=== PATIENT | male | born 1970 | race Caucasian/White ===

== ENCOUNTER 2020-05-06 12:39 | Outpatient (REF) | payer OTHER, SELFPAY ==
[2020-05-06 13:05] LABS: MANUAL DIFF FLAG NO
[2020-05-06 13:13] LABS: Basophils Absolute Auto 0.1 X10*3/uL (0.0-0.2); Basophils Percent Auto 0.6 % (0-2); Eosinophils Absolute Auto 0.3 X10*3/uL (0.0-0.4); Eosinophils Percent Auto 3.1 % (0-4); Hematocrit 44.2 % (42-52); Hemoglobin 15.2 g/dl (14.0-18.0); Imm Gran Abs Auto 0.02 X10*3/uL (0.00-0.03); Imm Gran Pct Auto 0.2 % (0.0-0.4); Lymphocytes Absolute Auto 2.3 X10*3/uL (1.2-4.9); Lymphocytes Percent Auto 23.6 % (20-40); Mean Corpuscular HGB Conc 34.4 g/dl (31.0-36.0); Mean Corpuscular Hemoglobin 30.3 pg (27.0-33.0); Mean Corpuscular Volume 88.2 fL (80-98); Mean Platelet Volume 10.9 fL (9.4-12.4); Monocytes Absolute Auto 0.5 X10*3/uL (0.1-1.2); Monocytes Percent Auto 5.2 % (2-11); Neutrophils Absolute Auto 6.6 X10*3/uL (2.0-8.3); Neutrophils Percent Auto 67.3 % (45-73); Platelet Count 185 X10*3/uL (160-400); Red Blood Count 5.01 X10*6/uL (4.60-5.80); Red Cell Distribution Width 12.3 % (11.0-16.0); White Blood Count 9.8 X10*3/uL (4.8-10.8)
[2020-05-06 13:36] LABS: Glucose Urine UA NEG (NEG); Leukocyte Esterase Urine NEG (NEG); Nitrite Urine NEG (NEG); PH 5.5 (5.0-8.0); Specific Gravity - Urine >= 1.030 (1.005-1.025); Urine Blood NEG (NEG); Urine Ketones NEG (NEG); Urine Protein NEG (NEG-TRACE)
[2020-05-06 13:40] LABS: Appearance Urine CLEAR; Color Urine YELLOW
[2020-05-06 13:46] LABS: Alanine Aminotransferase 31 U/L (0-40); Albumin Level 4.6 g/dL (3.5-5.0); Alkaline Phosphatase 63 U/L (39-117); Anion Gap 12 (12-20); Aspartate Amino Transferase 20 U/L (5-37); Bilirubin Total 1.1 mg/dL (0.0-1.0); Blood Urea Nitrogen 14 mg/dL (9-16); Calcium 8.9 mg/dL (8.4-10.2); Carbon Dioxide 26 mmol/L (22-29); Chloride 104 mmol/L (96-108); Cholesterol 229 mg/dL; Estimated Glomerular Filt Rate > 60; Glucose Fasting 109 mg/dL (60-99); HDL Cholesterol 60 mg/dL; LDL Cholesterol Calculated 153 mg/dl; Potassium 4.9 mmol/l (3.3-5.1); Sodium 137 mmol/L (135-145); Total Protein 7.4 g/dL (6.5-8.0); Triglycerides 82 mg/dL
[2020-05-06 13:50] LABS: Estimated Average Glucose 105 mg/dL; Hemoglobin A1c % 5.3 %
[2020-05-06 13:55] LABS: Creatinine Urine 119.46 mg/dL; Microalbum/Creatinine Ratio Ur 4.1 ug/mg cr
== END 2020-05-06 12:40 | disposition home or self-care (01) ==
LOC: HO.LAB 12:39
PROVIDERS: Visit Provider Internal Medicine
DX: Z00.00 Encounter for general adult medical examination without abnormal findings (principal); R73.03 Prediabetes; E78.00 Pure hypercholesterolemia, unspecified
CPT/HCPCS: 36415; 80053; 80061; 81003; 82043; 83036; 85025

== ENCOUNTER 2021-05-12 10:47 | Outpatient (REF) | payer OTHER, SELFPAY ==
[2021-05-12 10:53] LABS: MANUAL DIFF FLAG NO
[2021-05-12 11:22] LABS: Basophils Absolute Auto 0.1 X10*3/uL (0.0-0.2); Basophils Percent Auto 0.8 % (0-2); Eosinophils Absolute Auto 0.3 X10*3/uL (0.0-0.4); Eosinophils Percent Auto 3.2 % (0-4); Hematocrit 44.2 % (42-52); Hemoglobin 15.2 g/dl (14.0-18.0); Imm Gran Abs Auto 0.03 X10*3/uL (0.00-0.03); Imm Gran Pct Auto 0.3 % (0.0-0.4); Lymphocytes Absolute Auto 2.3 X10*3/uL (1.2-4.9); Mean Corpuscular HGB Conc 34.4 g/dl (31.0-36.0); Mean Corpuscular Hemoglobin 30.2 pg (27.0-33.0); Mean Corpuscular Volume 87.9 fL (80-98); Mean Platelet Volume 11.4 fL (9.4-12.4); Monocytes Absolute Auto 0.5 X10*3/uL (0.1-1.2); Neutrophils Absolute Auto 5.7 X10*3/uL (2.0-8.3); Neutrophils Percent Auto 63.7 % (45-73); Platelet Count 174 X10*3/uL (160-400); Red Blood Count 5.03 X10*6/uL (4.60-5.80); Red Cell Distribution Width 12.2 % (11.0-16.0)
[2021-05-12 11:32] LABS: Estimated Average Glucose 100 mg/dL; Hemoglobin A1c % 5.1 %
[2021-05-12 11:45] LABS: Alanine Aminotransferase 25 U/L (0-40); Albumin Level 4.3 g/dL (3.5-5.0); Alkaline Phosphatase 52 U/L (39-117); Anion Gap 14 (12-20); Aspartate Amino Transferase 20 U/L (5-37); Bilirubin Total 1.1 mg/dL (0.0-1.0); Blood Urea Nitrogen 14 mg/dL (9-16); Calcium 8.8 mg/dL (8.4-10.2); Carbon Dioxide 22 mmol/L (22-29); Chloride 108 mmol/L (96-108); Cholesterol 208 mg/dL; Estimated Glomerular Filt Rate > 60; Glucose Fasting 105 mg/dL (60-99); HDL Cholesterol 42 mg/dL; LDL Cholesterol Calculated 126 mg/dl; Sodium 140 mmol/L (135-145); Total Protein 6.9 g/dL (6.5-8.0); Triglycerides 200 mg/dL
[2021-05-12 11:54] LABS: Appearance Urine CLEAR; Color Urine YELLOW; Glucose Urine UA NEG (NEG); Leukocyte Esterase Urine NEG (NEG); Nitrite Urine NEG (NEG); Specific Gravity - Urine 1.025 (1.005-1.025); Urine Blood NEG (NEG); Urine Ketones NEG (NEG); Urine Protein NEG (NEG-TRACE)
[2021-05-12 11:57] LABS: Creatinine Urine 159.13 mg/dL
[2021-05-12 12:05] LABS: PSA,Total (Free>4and<10) 1.75 ng/mL (0.00-4.00)
== END 2021-05-12 10:48 | disposition home or self-care (01) ==
LOC: HO.LNP 10:47
PROVIDERS: Visit Provider Internal Medicine
DX: Z00.00 Encounter for general adult medical examination without abnormal findings (principal); Z12.5 Encounter for screening for malignant neoplasm of prostate; R73.03 Prediabetes; E78.00 Pure hypercholesterolemia, unspecified
CPT/HCPCS: 80053; 80061; 81003; 82043; 83036; 84153; 85025

== ENCOUNTER 2022-01-04 09:31 | Day surgery (SDC) | payer OTHER, SELFPAY ==
[2021-12-29 12:52] VITALS: BMI 38.2
--- NOTE | 2022-01-01 10:10 | HO.ANESPROP2 ---
Documented by User: Isis Bender NP 01/01/22 10:10 HPI - Anesthesia Eval Consult details Narrative: 51yo M for Colonoscopy FOR[facility] Past Medical History Medical History (Updated 12/29/21 @ 12:48 by Tory Alfaro RN) No pertinent past medical history Surgical History Surgical History (Updated 12/29/21 @ 12:51 by Tory Alfaro RN) History of appendectomy Social History Social History Patient Tobacco Use Status: Never used Tobacco Use of substances other than those prescribed or required for medical reasons: No Are you DNR?: No Advance Directives: No Advance Directives Information Provided: Yes Meds Allergies Allergy/AdvReac Type Severity Reaction Status Date / Time No Known Allergies Allergy Verified 12/29/21 12:51 Home Medications Medication Instructions Recorded Confirmed Last Taken Type No Known Home Meds 12/29/21 12/29/21 Unknown History Exam Exam Date and Time: January 01, 2022 1010 Height,Weight and Vital Signs: Height 6 ft 1 in Weight 131.542 kg Assessment and Plan Assessment Anesthesia Assessment: Chart Reviewed Documented by User: Tod Amos MD 01/04/22 16:59 HPI - Anesthesia Eval Consult details Narrative: 51yo M for Colonoscopy Obesity , BMI=38 [facility] Past Medical History Medical History (Updated 12/29/21 @ 12:48 by Tory Alfaro RN) No pertinent past medical history Family History Family history of problems with anesthesia: No Surgical History Surgical History (Updated 12/29/21 @ 12:51 by Tory Alfaro RN) History of appendectomy History of Problems with Anesthesia: No Social History Social History Patient Tobacco Use Status: Never used Tobacco Use of substances other than those prescribed or required for medical reasons: No Are you DNR?: No Advance Directives: No Advance Directives Information Provided: Yes Meds Allergies Allergy/AdvReac Type Severity Reaction Status Date / Time No Known Allergies Allergy Verified 12/29/21 12:51 Home Medications Medication Instructions Recorded Confirmed Last Taken Type No Known Home Meds 12/29/21 12/29/21 Unknown History Exam Airway Mallampati Class: IV TM Dist: >3cm Neck ROM: Full Loose/Missing/Broken Teeth: Yes (Chipped teeth ) Heart: S1,S2 Lungs: b/l breath sounds Assessment and Plan Assessment Anesthesia Assessment: Anesthesia Plan Discussed Final Anesthetic Review Family History of Problems with Anesthesia: No History of Problems with Anesthesia: No NPO: Yes ASA Class: II Final Preanesthetic Review: Meds/Allgs Chart Reviewed, Consent Obtained/Reviewed and Anes Risks/Benef Reviewed Patient Risk: Intermediate Procedure Risk: Intermediate Anesthetic Plan Anesthetic Plan: MAC: Disposition: Standard PACU
[2022-01-04 09:47] VITALS: BP 154/94; PULSE 70; RESP 16; TEMP 36.3; O2SAT 99
[2022-01-04] MEDS: Lactated Ringers 1,000 ML 100 ML IVCONT (09:56)
--- NOTE | 2022-01-04 12:17 | PM.OP ---
Brief Operative Note Date of Service: 01/04/22 Pre-op diagnosis: Screening Post-op diagnosis: other (Diverticulosis) Procedure: Colonoscopy to the cecum and TI Surgeon: James Silva Anesthesia: MAC Was an Traffic Work[employer] Representative used for this Procedure?: No Estimated blood loss (mL): 0 Pathology: none sent Condition: stable Disposition: PACU
[2022-01-04 12:19] VITALS: BP 124/87; PULSE 79; RESP 15; TEMP 36.3; O2SAT 97
[2022-01-04 12:33] VITALS: BP 139/96; PULSE 61; RESP 16; TEMP 36.3; O2SAT 98
--- NOTE | 2022-01-04 23:29 | OP_ITS ---
SURGEON: James Silva MD INDICATIONS: The patient presents for evaluation of colorectal cancer screening. Full consent has been obtained from him for this, including risks of bleeding and perforation. PREOPERATIVE DIAGNOSIS: Colorectal cancer screening. POSTOPERATIVE DIAGNOSIS: PROCEDURE PERFORMED: Colonoscopy to the cecum and terminal ileum. ESTIMATED BLOOD LOSS: COMPLICATIONS: ANESTHESIA: Monitored anesthesia care. ASSISTANTS: SPECIMENS: POSTOPERATIVE DIAGNOSES: Colorectal cancer screening, diverticulosis, internal hemorrhoids. DESCRIPTION OF PROCEDURE: The patient was placed in the left lateral decubitus position. The digital rectal exam revealed no abnormalities. The Olympus video pediatric colonoscope was entered into the rectum and advanced to the cecum with the assistance of abdominal pressure. Once in the cecum, I did identify normal-appearing cecal pouch with appendiceal orifice and a normal-appearing ileocecal valve. The terminal ileum was cannulated and appeared normal. Scope was withdrawn back into the colon. The entire cecum and ileocecal valve appeared normal. The scope was slowly withdrawn assessing all mucosal surfaces carefully. Preparation was excellent. I did not visualize any sign of polyps, colitis, or angiodysplasia. There was a moderate amount of sigmoid diverticulosis. In the rectum, scope was retroflexed visualizing small internal hemorrhoids, but no other pathology. The rectal mucosa appeared normal. The scope was straightened and withdrawn from the patient. He tolerated the procedure well and was returned to the recovery area in stable condition. IMPRESSION: 1. Sigmoid diverticulosis. 2. Small internal hemorrhoids. PLAN: Given his negative exam and negative family history, I would recommend a followup colonoscopy in 10 years for further screening. He will otherwise see me on a p.r.n. basis. James Silva MD RMW/MODL / [id number]
== END 2022-01-04 12:55 | disposition home or self-care (01) ==
PROVIDERS: PCP Internal Medicine; Visit Provider Internal Medicine
PROC: 0DJD8ZZ Inspection of Lower Intestinal Tract, Via Natural or Artificial Opening Endoscopic (ICD-10-PCS; CPT 45378; principal; 2022-01-04 14:10)
DX: Z12.11 Encounter for screening for malignant neoplasm of colon (principal); K57.30 Diverticulosis of large intestine without perforation or abscess without bleeding; K64.8 Other hemorrhoids; Z80.42 Family history of malignant neoplasm of prostate
CPT/HCPCS: 45378

== ENCOUNTER 2022-05-14 11:14 | Outpatient (REF) | payer OTHER, SELFPAY ==
[2022-05-14 11:16] LABS: MANUAL DIFF FLAG NO
[2022-05-14 11:57] LABS: Appearance Urine Clear; Color Urine Yellow; Glucose Urine UA Negative (Negative); Leukocyte Esterase Urine Negative (Negative); Nitrite Urine Negative (Negative); PH 5.5 (5.0-9.0); Specific Gravity - Urine 1.025 (1.005-1.025); Urine Blood Negative (Negative); Urine Ketones Negative (Negative); Urine Protein Negative (Neg-Trace)
[2022-05-14 11:58] LABS: Basophils Absolute Auto 0.1 X10*3/uL (0.0-0.2); Basophils Percent Auto 0.9 % (0-2); Eosinophils Absolute Auto 0.3 X10*3/uL (0.0-0.4); Eosinophils Percent Auto 2.9 % (0-4); Hematocrit 45.2 % (42.0-52.0); Hemoglobin 15.6 g/dl (14.0-18.0); Imm Gran Abs Auto 0.02 X10*3/uL (0.00-0.03); Imm Gran Pct Auto 0.2 % (0.0-0.4); Lymphocytes Absolute Auto 2.5 X10*3/uL (1.2-4.9); Lymphocytes Percent Auto 26.1 % (20-40); Mean Corpuscular HGB Conc 34.5 g/dl (31.0-36.0); Mean Corpuscular Hemoglobin 30.4 pg (27.0-33.0); Mean Corpuscular Volume 87.9 fL (80.0-98.0); Mean Platelet Volume 11.4 fL (9.4-12.4); Monocytes Absolute Auto 0.5 X10*3/uL (0.1-1.2); Monocytes Percent Auto 5.6 % (2-11); Neutrophils Absolute Auto 6.1 x10*3/uL (2.0-8.3); Neutrophils Percent Auto 64.3 % (45-73); Platelet Count 182 X10*3/uL (160-400); Red Blood Count 5.14 X10*6/uL (4.60-5.80); Red Cell Distribution Width 12.4 % (11.0-16.0); White Blood Count 9.4 X10*3/uL (4.8-10.8)
[2022-05-14 12:07] LABS: Bacteria Urine None Seen (None Seen); Hyaline Casts Urine 0-2 /LPF (0-2); RBC Urine 0-2 /HPF (0-2); Squamous Epithelial Cell Urine 0-2 /HPF (0-2); WBC Urine 0-5 /HPF (0-5)
[2022-05-14 12:11] LABS: Estimated Average Glucose 103 mg/dL; Hemoglobin A1c % 5.2 %
[2022-05-14 12:40] LABS: Creatinine Urine 190.95 mg/dL; Microalbum/Creatinine Ratio Ur 5.2 ug/mg cr
[2022-05-14 12:47] LABS: Alanine Aminotransferase 29 U/L (0-40); Albumin Level 4.5 g/dL (3.5-5.0); Alkaline Phosphatase 54 U/L (39-117); Anion Gap 16 (12-20); Aspartate Amino Transferase 24 U/L (5-37); Bilirubin Total 1.1 mg/dL (0.0-1.0); Blood Urea Nitrogen 16 mg/dL (9-16); Calcium 8.7 mg/dL (8.4-10.2); Carbon Dioxide 23 mmol/L (22-29); Chloride 105 mmol/L (96-108); Cholesterol 245 mg/dL; Estimated Glomerular Filt Rate > 60; Glucose Fasting 124 mg/dL (60-99); HDL Cholesterol 48 mg/dL; LDL Cholesterol Calculated 161 mg/dl; Potassium 4.1 mmol/L (3.3-5.1); Sodium 140 mmol/L (135-145); Total Protein 7.2 g/dL (6.5-8.0); Triglycerides 184 mg/dL
[2022-05-14 12:50] LABS: PSA,Total (Free>4and<10) 1.59 ng/mL (0.00-4.00)
== END 2022-05-14 11:15 | disposition home or self-care (01) ==
LOC: HO.LNP 11:14
PROVIDERS: Visit Provider Internal Medicine
DX: Z12.5 Encounter for screening for malignant neoplasm of prostate (principal); R73.03 Prediabetes; E78.00 Pure hypercholesterolemia, unspecified
CPT/HCPCS: 80053; 80061; 81001; 82043; 83036; 84153; 85025

== ENCOUNTER 2023-05-20 10:52 | Outpatient (REF) | payer OTHER, SELFPAY ==
[2023-05-20 10:57] LABS: MANUAL DIFF FLAG NO
[2023-05-20 11:11] LABS: Appearance Urine Clear; Basophils Absolute Auto 0.1 X10*3/uL (0.0-0.2); Basophils Percent Auto 0.6 % (0-2); Color Urine Yellow; Eosinophils Absolute Auto 0.3 X10*3/uL (0.0-0.4); Glucose Urine UA Negative (Negative); Hematocrit 46.4 % (42.0-52.0); Imm Gran Abs Auto 0.02 X10*3/uL (0.00-0.03); Imm Gran Pct Auto 0.2 % (0.0-0.4); Leukocyte Esterase Urine Negative (Negative); Lymphocytes Absolute Auto 2.4 X10*3/uL (1.2-4.9); Lymphocytes Percent Auto 27.2 % (20-40); Mean Corpuscular HGB Conc 34.5 g/dl (31.0-36.0); Mean Corpuscular Hemoglobin 30.4 pg (27.0-33.0); Mean Platelet Volume 11.4 fL (9.4-12.4); Monocytes Absolute Auto 0.5 X10*3/uL (0.1-1.2); Monocytes Percent Auto 6.2 % (2-11); Neutrophils Absolute Auto 5.5 x10*3/uL (2.0-8.3); Neutrophils Percent Auto 62.8 % (45-73); Nitrite Urine Negative (Negative); PH 5.5 (5.0-9.0); Platelet Count 175 X10*3/uL (160-400); Red Blood Count 5.27 X10*6/uL (4.60-5.80); Specific Gravity - Urine 1.025 (1.005-1.025); Urine Blood Negative (Negative); Urine Ketones Negative (Negative); Urine Protein Negative (Neg-Trace); White Blood Count 8.7 X10*3/uL (4.8-10.8)
[2023-05-20 11:17] LABS: Bacteria Urine None Seen (None Seen); Estimated Average Glucose 100 mg/dL; Hemoglobin A1c % 5.1 % (<6.0); Hyaline Casts Urine 0-2 /LPF (0-2); RBC Urine 0-2 /HPF (0-2); Squamous Epithelial Cell Urine 0-2 /HPF (0-2); WBC Urine 0-5 /HPF (0-5)
[2023-05-20 11:27] LABS: Alanine Aminotransferase 28 U/L (0-40); Albumin Level 4.3 g/dL (3.5-5.0); Alkaline Phosphatase 52 U/L (39-117); Anion Gap 14 (12-20); Aspartate Amino Transferase 24 U/L (5-37); Bilirubin Total 1.2 mg/dL (0.0-1.0); Blood Urea Nitrogen 18 mg/dL (9-16); Calcium 9.2 mg/dL (8.4-10.2); Carbon Dioxide 24 mmol/L (22-29); Chloride 107 mmol/L (96-108); Cholesterol 234 mg/dL (<200); Estimated Glomerular Filt Rate > 60; Glucose Fasting 121 mg/dL (60-99); HDL Cholesterol 56 mg/dL (>40); LDL Cholesterol Calculated 152 mg/dL (<100); Potassium 3.9 mmol/L (3.3-5.1); Sodium 141 mmol/L (135-145); Total Protein 7.3 g/dL (6.5-8.0); Triglycerides 130 mg/dL (<150)
[2023-05-20 11:48] LABS: PSA,Total (Free>4and<10) 2.11 ng/mL (0.00-4.00)
[2023-05-20 12:36] LABS: Creatinine Urine 166.73 mg/dL; Microalbum/Creatinine Ratio Ur 4.7 ug/mg cr (<30)
== END 2023-05-20 10:53 | disposition home or self-care (01) ==
LOC: HO.LNP 10:52
PROVIDERS: Visit Provider Internal Medicine
DX: Z00.00 Encounter for general adult medical examination without abnormal findings (principal); Z12.5 Encounter for screening for malignant neoplasm of prostate; R73.03 Prediabetes; E78.00 Pure hypercholesterolemia, unspecified
CPT/HCPCS: 80053; 80061; 81001; 82043; 82570; 83036; 84153; 85025

== ENCOUNTER 2024-05-24 11:23 | Outpatient (REF) | payer OTHER, SELFPAY ==
[2024-05-24 11:32] LABS: MANUAL DIFF FLAG NO
[2024-05-24 12:02] LABS: Appearance Urine Clear; Basophils Absolute Auto 0.1 X10*3/uL (0.0-0.2); Basophils Percent Auto 0.6 % (0-2); Color Urine Yellow; Eosinophils Absolute Auto 0.3 X10*3/uL (0.0-0.4); Eosinophils Percent Auto 3.3 % (0-4); Glucose Urine UA Negative (Negative); Hematocrit 43.1 % (42.0-52.0); Imm Gran Abs Auto 0.02 X10*3/uL (0.00-0.03); Imm Gran Pct Auto 0.2 % (0.0-0.4); Leukocyte Esterase Urine Negative (Negative); Lymphocytes Absolute Auto 2.3 X10*3/uL (1.2-4.9); Lymphocytes Percent Auto 27.7 % (20-40); Mean Corpuscular HGB Conc 34.8 g/dl (31.0-36.0); Mean Corpuscular Hemoglobin 30.7 pg (27.0-33.0); Mean Corpuscular Volume 88.3 fL (80.0-98.0); Mean Platelet Volume 10.9 fL (9.4-12.4); Monocytes Absolute Auto 0.5 X10*3/uL (0.1-1.2); Monocytes Percent Auto 5.5 % (2-11); Neutrophils Absolute Auto 5.1 x10*3/uL (2.0-8.3); Neutrophils Percent Auto 62.7 % (45-73); Nitrite Urine Negative (Negative); PH 5.5 (5.0-9.0); Platelet Count 160 X10*3/uL (160-400); Red Blood Count 4.88 X10*6/uL (4.60-5.80); Red Cell Distribution Width 12.7 % (11.0-16.0); Specific Gravity - Urine 1.025 (1.005-1.025); Urine Blood Negative (Negative); Urine Ketones Negative (Negative); Urine Protein Negative (Neg-Trace); White Blood Count 8.2 X10*3/uL (4.8-10.8)
[2024-05-24 12:06] LABS: Bacteria Urine None Seen (None Seen); Hyaline Casts Urine 0-2 /LPF (0-2); RBC Urine 0-2 /HPF (0-2); Squamous Epithelial Cell Urine 0-2 /HPF (0-2); WBC Urine 0-5 /HPF (0-5)
[2024-05-24 12:14] LABS: Estimated Average Glucose 103 mg/dL; Hemoglobin A1C 124.7922 umol/L; Hemoglobin A1c % 5.2 % (<6.0)
[2024-05-24 12:20] LABS: Alanine Aminotransferase 30 U/L (0-40); Albumin Level 4.1 g/dL (3.5-5.0); Alkaline Phosphatase 53 U/L (39-117); Anion Gap 14 (12-20); Aspartate Amino Transferase 26 U/L (5-37); Bilirubin Total 0.9 mg/dL (0.0-1.0); Blood Urea Nitrogen 18 mg/dL (9-16); Calcium 9.3 mg/dL (8.4-10.2); Carbon Dioxide 23 mmol/L (22-29); Chloride 108 mmol/L (96-108); Cholesterol 213 mg/dL (<200); Estimated Glomerular Filt Rate > 60; Glucose Fasting 109 mg/dL (60-99); HDL Cholesterol 47 mg/dL (>40); LDL Cholesterol Calculated 146 mg/dL (<100); Potassium 3.9 mmol/L (3.3-5.1); Sodium 141 mmol/L (135-145); Total Protein 6.9 g/dL (6.5-8.0); Triglycerides 102 mg/dL (<150)
[2024-05-24 12:33] LABS: Creatinine Urine 188.41 mg/dL; Microalbum/Creatinine Ratio Ur 3.1 ug/mg cr (<30)
[2024-05-24 12:37] LABS: PSA,Total (Free>4and<10) 3.11 ng/mL (0.00-4.00)
== END 2024-05-24 11:24 | disposition home or self-care (01) ==
LOC: HO.LNP 11:23
PROVIDERS: Visit Provider Internal Medicine
DX: R73.09 Other abnormal glucose (principal); E78.00 Pure hypercholesterolemia, unspecified; Z12.5 Encounter for screening for malignant neoplasm of prostate
CPT/HCPCS: 80053; 80061; 81001; 82043; 82570; 83036; 84153; 85025

== ENCOUNTER 2024-11-26 11:41 | Outpatient (REF) | payer OTHER, SELFPAY ==
[2024-11-26 13:02] LABS: PSA,Total (Free>4and<10) 3.19 ng/mL (0.00-4.00)
--- OUTSIDE RECORDS SUMMARY | 2024-11-26 13:29 | XMS_ITS | Patient Health Record ---
Author Organization Benito Wick MD Address [address] [place], [place] [id number] Care Team Providers Care Patient Admitting Representative Name Role Phone Benito Wick Primary Care Provider [phone] Allergies No Known Allergies Results Component Value Reference Range Notes Complete Blood Count Auto Di ff Reviewed date:05/24/2024 12:38:33 PM Interpretation: Performing Lab:[facility], [address] [place] [phone] Notes/Report: White Blood Count 8.2 4.8-10.8 X10*3/uL Red Blood Count 4.88 4.60-5.80 X10*6/uL Hemoglobin 15.0 14.0-18.0 g/dl Hematocrit 43.1 42.0-52.0 % Mean Corpuscular Volume 88.3 80.0-98.0 fL Mean Corpuscular Hemoglobin 30.7 27.0-33.0 pg Mean Corpuscular HGB Conc 34.8 31.0-36.0 g/dl Red Cell Distribution Width 12.7 11.0-16.0 % Platelet Count 160 160-400 X10*3/uL Mean Platelet Volume 10.9 9.4-12.4 fL Neutrophils Percent Auto 62.7 45-73 % Imm Gran Pct Auto 0.2 0.0-0.4 % Lymphocytes Percent Auto 27.7 20-40 % Monocytes Percent Auto 5.5 2-11 % Eosinophils Percent Auto 3.3 0-4 % Basophils Percent Auto 0.6 0-2 % NRBC Pct Auto 0.0 0.0-0.2 /100WBC Neutrophils Absolute Auto 5.1 2.0-8.3 x10*3/u L Imm Gran Abs Auto 0.02 0.00-0.03 X10*3/uL Lymphocytes Absolute Auto 2.3 1.2-4.9 X10*3/u L Monocytes Absolute Auto 0.5 0.1-1.2 X10*3/uL Eosinophils Absolute Auto 0.3 0.0-0.4 X10*3/u L Basophils Absolute Auto 0.1 0.0-0.2 X10*3/uL NRBC Abs Auto 0.000 0.0-0.012 X10*3/uL Comprehensive [place]. Panel Fa st Reviewed date:05/24/2024 12:39:02 PM Interpretation: Performing Lab:[facility], [address] [place] [phone] Notes/Report: Sodium 141 135-145 mmol/L Potassium 3.9 3.3-5.1 mmol/L Chloride 108 96-108 mmol/L Carbon Dioxide 23 22-29 mmol/L Anion Gap 14 12-20 Blood Urea Nitrogen 18 9-16 mg/dL Creatinine 1.01 0.5-1.4 mg/dL Estimated Glomerular Filt Rate > 60 NOTE: For -Swedish individuals, multiply the result by 1.210. Chronic Kidney Disease: Estimated GFR < 60 mL/min/1.73m2 Severe Kidney Disease: Estimated GFR < 15 mL/min/1.73m2 Glucose Fasting 109 60-99 mg/dL A fasting glucose from 100-125 mg/dl is considered impaired (pre-diabetes). Calcium 9.3 8.4-10.2 mg/dL Bilirubin Total 0.9 0.0-1.0 mg/dL Aspartate Amino Transferase 26 5-37 U/L Alanine Aminotransferase 30 0-40 U/L Total Protein 6.9 6.5-8.0 g/dL Albumin Level 4.1 3.5-5.0 g/dL Alkaline Phosphatase 53 39-117 U/L Lipid Panel Reviewed date:05/24/2024 12:31:05 PM Interpretation: Performing Lab:[facility], [address] [place] [phone] Notes/Report: Triglycerides 102 <150 mg/dL Desirable Triglyceride: less than 150 mg/dL Borderline High Triglyceride 150-199 mg/dL High Triglyceride: 200-499 mg/dL Very High Triglyceride: greater than or equal to 5OO mg/dL Cholesterol 213 <200 mg/dL Desirable Cholesterol: less than 200 mg/dL Borderline High Cholesterol: 200-239 mg/dL High Cholesterol: greater than 239 mg/dL LDL Cholesterol Calculated 146 <100 mg/dL Desirable LDL: less than 100 mg/dL Near Optimal/Above Optimal LDL: 110-129 mg/dL Borderline High LDL: 130-159 mg/dL High LDL: 160-189 mg/dL Very High LDL: greater than or equal to 190 mg/dL HDL Cholesterol 47 >40 mg/dL Desirable HDL: greater than 40 mg/dL Note: This HDL assay may give artificially low results in patients with liver disease. PSA,Total (Free>4and<10) Reviewed date:05/31/2024 08:42:51 AM Interpretation:HIEU 05/29 Performing Lab:[address] [phone] Notes/Report: PSA,Total (Free>4and<10) 3.11 0.00-4.00 ng/mL A Free PSA was not performed: The percentage of Free PSA can be used to enhance the differentiation of prostate cancer from benign prostatic disease in subjects whose PSA levels are between 4.0 and 10.0 ng/mL. For subjects whose PSA levels are below 4.0 or above 10.0 ng/mL, the risk of prostate cancer is determined on the basis of the PSA alone. Therefore the % Free PSA is recommended only for those subjects whose PSA levels are between 4.0 and 10.0 ng/mL. PSA methodology: Castro Alinity i Chemiluminescent Microparticle Immunoassay (CMIA) Microalbumin, Random Reviewed date:05/24/2024 12:38:43 PM Interpretation: Performing Lab:[address] [phone] Notes/Report: Creatinine Urine 188.41 Microalbumin Urine 6.0 Microalbum/Creatinine Ratio Ur 3.1 <30 ug/mg cr Albumin/Creatinine Ratio Reference Ranges: Normal: < 30 ug/mg creatinine Microalbuminuria: 30 - 300 ug/mg creatinine Clinical Albuminuria: > 300 ug/mg creatinine Hemoglobin A1c Reviewed date:05/24/2024 12:30:56 PM Interpretation: Performing Lab:[address] [place] [address] Notes/Report: Hemoglobin A1c % 5.2 <6.0 % Hemoglobin A1C Reference Range Adults: 4.8 - 6.0 % Non diabetic: < 6.0 % Goal: < 7.0 % Additional Action Suggested: > 8.0 % Note: Hemoglobin A1c results are invalid for patients with abnormal amounts of HbF. Blood transfusions may impact the HbA1c concentration in the patient sample. Estimated Average Glucose 103 eAG = Estimated average glucose which is %A1C expressed as average glucose, using the formula of the [id number] Average Glucose study (ADAG), Diabetes Care, Vol.31,#8, Feb. 2007 UA ClnCatch+Micro w/rflx Cul t Reviewed date:05/24/2024 12:31:32 PM Interpretation: Performing Lab:[address] [phone] Notes/Report: Urine, Clean Catch Color Urine Yellow Appearance Urine Clear PH 5.5 5.0-9.0 Glucose Urine UA Negative Negative mg/dL Urine Blood Negative Negative Specific [place] - Urine 1.025 1.005-1.025 Urine Protein Negative Neg-Trace mg/dL Urine Ketones Negative Negative mg/dL Nitrite Urine Negative Negative Leukocyte Esterase Urine Negative Negative RBC Urine 0-2 0-2 /HPF WBC Urine 0-5 0-5 /HPF Squamous Epithelial Cell Urine 0-2 0-2 /HPF Bacteria Urine None Seen None Seen Hyaline Casts Urine 0-2 0-2 /LPF Occult Blood, Stool, Guaiac Reviewed date:05/29/2024 02:41:24 PM Interpretation:Negative Performing Lab: Notes/Report: Negative Occult Blood, Stool, Guaiac Neg PSA,Total (Free>4and<10) (No t yet reviewed by provider) Interpretation: Performing Lab:[facility], [address] [place] [phone] Notes/Report: PSA,Total (Free>4and<10) 3.19 0.00-4.00 ng/mL A Free PSA was not performed: The percentage of Free PSA can be used to enhance the differentiation of prostate cancer from benign prostatic disease in subjects whose PSA levels are between 4.0 and 10.0 ng/mL. For subjects whose PSA levels are below 4.0 or above 10.0 ng/mL, the risk of prostate cancer is determined on the basis of the PSA alone. Therefore the % Free PSA is recommended only for those subjects whose PSA levels are between 4.0 and 10.0 ng/mL. PSA methodology: Castro Alinity i Chemiluminescent Microparticle Immunoassay (CMIA) Reason For Referral No Information Immunizations Vaccine Route Administration Date Status Comme nts DECLINED, FLU Unknown 05/15/2013 Administered SARS-COV-2 Pfizer Unknown 11/04/2020 Administered SARS-COV-2 Pfizer Unknown 11/25/2020 Administered DECLINED, FLU Unknown 06/27/2014 Refused Flu Vaccine Unknown 05/12/2015 Refused Fluarix Quadrivalent Unknown 04/05/2017 Refused Fluarix Quadrivalent Unknown 04/18/2018 Refused Fluarix Quadrivalent Unknown 04/30/2019 Refused TDaP Unknown 05/08/2019 Refused Fluarix Quadrivalent Unknown 05/13/2020 Refused Fluarix Quadrivalent Unknown 05/12/2021 Refused Fluarix Quadrivalent Unknown 05/14/2022 Refused Fluarix Quadrivalent Unknown 05/26/2023 Refused Fluarix Quadrivalent - 150 Unknown 05/29/2024 Refused Social History Tobacco Use: Social History Observation Description Date Details (start date - stop date) Never Smoker NA - NA Tobacco Use/Smoking Question Answer Notes Patient is a nonsmoker Additional Findings: Tobacco Non-User Cu rrent non-smoker, currently using no form of tobacco Alcohol Screen Question Answer Notes Did you have a drink contain ing alcohol in the past year? Yes How often did you have a dri nk containing alcohol in the past year? 2 to 4 times a month (2 points) How many drinks did you have on a typical day when you were drinking in the past year? 1 or 2 drinks (0 point) Points 2 Interpretation Negative Problems Problem Type SNOMED Code ICD Code Onset Dates Problem Status W/U Status Risk Notes Problem 9534959 Prediabetes (R73.09) Active confirmed Problem 760205058 Non morbid obesi ty due to excess calories (E66.09) Active confirmed Problem 770773729 Pure hypercholesterolemia (E78.00) Active confirmed Vital Signs Blood pressure diastolic 82 mm Hg 05/29/2024 dwain ght is up 4 pounds since 05-26-24 Height 72 in 05/29/2024 weight is up 4 pounds since 05-26-24 Blood pressure systolic 128 mm Hg 05/29/2024 kumar ht is up 4 pounds since 05-26-24 Weight 281 lbs 05/29/2024 weight is up 4 pounds since 05-26-24 BMI 38.11 kg/m2 05/29/2024 weight is up 4 pounds since 05-26-24 Encounters Encounter Location Date Provider Diagnosis Benito Wick MD [address] [place] [phone] 05/24/2024 Benito Wick Blood tests for rout ine general physical examination Z00.00 ; Prediabetes R73.09 and Pure hypercholesterolemia E78.00 Benito Wick MD [address] [place] [id number] 11/26/2024 Benito Wick Pure hypercholestero lemia E78.00 Benito Wick MD [address] [place] [id number] 05/29/2024 Benito Wick Prediabetes R73.09 ; Pure hypercholesterolemia E78.00 ; Rising PSA level R97.20 ; Colon cancer screening Z12.11 and Depression screening Z13.31 Assessments Encounter Date Diagnosis (ICD Code) Assessment Notes Treatment Notes Treatment Clinical Notes Section Notes 05/24/20[address] tests [address] ine general physical examination (ICD-10 - Z00.00) 05/24/2024 Prediabetes (ICD-10 - R73.09) 11/26/2024 Pure hypercholesterolemia (ICD-10 - E78.00) 05/29/2024 Prediabetes (ICD-10 - R73.09) advised weight loss, will contnue to monitor, no need for medication at this time 05/29/2024 Pure hypercholesterolemia (ICD-10 - E78.00) needs to lose weight, will contonue to monitor 05/24/2024 Pure hypercholesterolemia (ICD-10 - E78.00) 05/29/2024 Rising PSA level (IC D-10 - R97.20) will continue to monitor, pending future lab 05/29/2024 Colon cancer screeni ng (ICD-10 - Z12.11) guaiac negative 05/29/2024 Depression screening (ICD-10 - Z13.31) negative screen Plan Of Treatment Pending Test Test Name Order Date CT ABD & PELVIS NO CONTRAST 09/18/2018 PSA,Total (Free>4and<10) 11/26/2024 Next Appt Details Provider Name:Benito Goff ier, 12/03/2024 08:30:00 AM, [address] [place] [address], Suite [facility], [place], [place], [phone], Provider Name:Benito Goff ier, 05/27/2025 08:00:00 AM, [address] [place] [address], [address], [place], [place], [phone], Provider Name:Benito Goff ier, 06/03/2025 02:30:00 PM, [address] [place] [address], [place] [address], [place], [place], [id number], Insurance Providers Payer Name Payer Address Payer Phone Subscriber Number Group Number Insured Name Patient Relationship to Insured Coverage Start Date Coverage End Date [facility] [address] [address] [place] [phone] [id number] Gustavo Resendiz Self - patient is the insured Medical (General) History Medical History History ICD Code Thrombocytopenia Thrombocytopenia D69.6 Colonscopy 01/04/22 repeat 10 y
--- OUTSIDE RECORDS SUMMARY | 2024-11-26 13:30 | XMS_ITS ---
Author Organization Benito Wick MD Address [address] [place] [phone] Care Team Providers Care Building Equipment Operator Name Role Phone Benito Wick Primary Care Provider Allergies No Known Allergies Results Component Value Reference Range Notes Occult Blood, Stool, Guaiac Reviewed date:05/29/2024 02:41:24 PM Interpretation:Negative Performing Lab: Notes/Report: Negative Occult Blood, Stool, Guaiac Neg REASON FOR VISIT ANNUAL EXAM, CBACK PSA Immunizations Vaccine Route Administration Date Status Comme nts Fluarix Quadrivalent - 150 Unknown 05/29/2024 Refused [...] drinks (0 point) Points 2 Interpretation Negative Vital Signs Blood pressure systolic 128 mm Hg 05/29/20 24 Blood pressure diastolic 82 mm Hg 024 Height 72 in 05/29/2024 Weight 281 lbs 05/29/2024 BMI 38.11 kg/m2 05/29/2024 weight is up 4 pounds since 05-26-24 Encounters Encounter Location Date Provider Diagnosis Benito Wick MD [address] [place] [phone] 05/29/2024 Benito Wick Prediabetes R73.09 ; Pure hypercholesterolemia E78.00 ; Rising PSA level R97.20 ; Colon cancer screening Z12.11 and Depression screening Z13.31 Assessments Encounter Date Diagnosis (ICD Code) Assessment Notes Treatment Notes Treatment Clinical Notes Section Notes 05/29/2024 Prediabetes (ICD-10 - R73.09) advised weight loss, will contnue to monitor, no need for medication at this time 05/29/2024 Pure hypercholesterolemia (ICD-10 - E78.00) needs to lose weight, will contonue to monitor 05/29/2024 Rising PSA level (IC D-10 - R97.20) will continue to monitor, pending future lab 05/29/2024 Colon cancer screeni ng (ICD-10 - Z12.11) guaiac negative 05/29/2024 Depression screening (ICD-10 - Z13.31) negative screen Plan Of Treatment Treatment Notes Assessment Notes Prediabetes advised weight loss, will contnue to monitor, no need for medication at this time Pure hypercholesterolemia needs to lose weight, will contonue to monitor Rising PSA level will continue to mon itor, pending future lab Colon cancer screening guaiac negative Depression screening negative screen Pending Test Test Name Order Date PSA,Total (Free>4and<10) 05/29/2024 Next Appt Details Follow Up: 6 Months, Reason: Provider Name:Benito nye, 12/03/2024 08:30:00 AM, [address] [place] [address], [address], [phone], Provider Name:Benito nye, 05/27/2025 08:00:00 AM, [address] [place] [address], [address], [phone], Provider Name:Benito nye, 06/03/2025 02:30:00 PM, [address] [place] [address], [address], [phone], Progress Notes * Jose F RESENDIZ:[birth year] (53 yo M)Acc No.[id number]:05/29/2024 Progress Notes Patient:Gustavo Lopez Provider:?Benito Wick MD :1970???Age:53 Y???Sex:Male Chris e:05/29/2024 Address:[address] [place], [place] [phone] Subjective: * Chief Complaints: * ???ANNUAL EXAMCBACK PSA * HPI: ???Depression Screening:?PHQ-9?Little interest or pleasure in doing things?Not at all,?Feeling down, depressed, or hopeless?Not at all,?Trouble falling or staying asleep, or sleeping too much?Not at all,?Feeling tired or having little energy?Not at all,?Poor appetite or overeating?Not at all,?Feeling bad about yourself or that you are a failure, or have let yourself or your family down?Not at all,?Trouble concentrating on things, such as reading the newspaper or watching television?Not at all,?Moving or speaking so slowly that other people could have noticed; or the opposite, being so fidgety or restless that you have been moving around a lot more than usual?Not at all,?Thoughts that you would be better off or of hurting yourself in some way?Not at all,?Total Score?0.?Interpretation and Intervention?Depression Screening Findings?Negative,?Follow-Up for Depression?: review of PHQ-9 found negative result, no follow-up needed.?Communication Needs:?Communication Needs?Does the patient have a hearing impairment?No,?Does the patient have a vision impairment??No,?Does the patient have a cognition impairment??No.?SDOH Questions:?SDOH Questions?In the past year have you been worried about losing housing??No,?In the past year have you or any family members you live with been unable to get any of the following when it was really needed? Check all that apply:?None.?Symptom(s):? patient is a 53 yo male here for annual visit with review of recent labs and follow up of chronic issues. * ROS:?General/Constitutional:?Change in appetite?denies.?Chills?denies.?Fever?denies.?Ophthalmologic:?Blurred vision?denies.?Discharge?denies.?Pain?denies.?ENT:?Decreased hearing?denies.?Sore throat?denies.?Swollen glands?denies.?Endocrine:?Cold intolerance?denies.?Excessive thirst?denies.?Heat intolerance?denies.?Weight loss?denies.?Respiratory:?Cough?denies.?Shortness of breath at rest?denies.?Shortness of breath with exertion?denies.?Wheezing?denies.?Cardiovascular:?Chest pain at rest?denies.?Chest pain with exertion?denies.?Irregular heartbeat?denies.?Shortness of breath?denies.?Gastrointestinal:?Abdominal pain?denies.?Change in bowel habits?denies.?Diarrhea?denies.?Nausea?denies.?Rectal bleeding?denies.?Vomiting?denies .?Genitourinary:?Blood in urine?denies.?Difficulty urinating?denies.?Frequent urination?denies.?Musculoskeletal:?Painful joints?denies.?Weakness?denies.?Skin:?Dry skin?denies.?Itching?denies.?Denies?Mole(s),? changes in moles, new moles or any lesions of concern.?Denies?Photosensitivity.?Rash?denies.?Neurologic:?Dizziness?denies.?Fainting?denies.?Headache?denies.? * Medical History:? * Surgical History:? * Hospitalization/Major Diagno stic Procedure:? * Family History:?Father: jamey schwartz 84 yrs.?Mother: alive 80 yrs.?1 brother(s) , 1 sister(s) . 1 son(s) . .? Mother- Healthy Father-Healthy, Denies mental health/substance abuse family history, No pertinent family medical history. * Social History:?Tobacco Use:?Tobacco Use/Smoking?Patient is a?nonsmoker,?Additional Findings: Tobacco Non-User?Current non-smoker, currently using no form of tobacco.?Drugs/Alcohol:?Alcohol Screen?Did you have a drink containing alcohol in the past year??Yes,?How often did you have a drink containing alcohol in the past year??2 to 4 times a month (2 points),?How many drinks did you have on a typical day when you were drinking in the past year??1 or 2 drinks (0 point),?Points?2,?Interpretation?Negative.?Miscellaneous:?Caffeine: yes, frequency:, 1-2 cups per day. Children: yes. Community involvements: yes. no Exercise. Home smoke detector use: yes. Housing: owning. Living with: spouse. Marital status: . Occupation: works full- time. Pets: cats: dogs:1 cat. no Travel outside of the [place]. * Medications:?None * Allergies:?N.K.D.A.yes[Aller gies Verified] Objective: * Vitals:?Ht: 72, Wt:281, BMI: 38.11, BP:128/82 weight is up 4 pounds since 05-26-24. * ???Past Orders: ???Lab:Comprehensive [facility]. P suzie Fast (Order Date - 05/24/2024) (Collection Date - 05/24/2024) ? Value Reference Range ?Sodium 141 135-145 - mmo l/L ?Bilirubin Total 0.9 0.0- 1.0 - mg/dL ?Aspartate Amino Transferase 26 5-37 - U/L ?Alanine Aminotransferase 30 0-40 - U/L ?Total Protein 6.9 6.5-8. 0 - g/dL ?Albumin Level 4.1 3.5-5. 0 - g/dL ?Alkaline Phosphatase 53 39-117 - U/L ?Potassium 3.9 3.3-5.1 - mmol/L ?Chloride 108 96-108 - mm ol/L ?Carbon Dioxide 23 22-29 - mmol/L ?Anion Gap 14 12-20 - ?Blood Urea Nitrogen 18 H 9-16 - mg/dL ?Creatinine 1.01 0.5-1.4 - mg/dL ?Estimated Glomerular Filt Rate > 60 - ?Glucose Fasting 109 H 60-9 9 - mg/dL ?Calcium 9.3 8.4-10.2 - m g/dL ???Lab:Lipid Panel (Order Da 05/24/2024) (Collection Date - 05/24/2024) ? Value Reference Range ?Triglycerides 102 <150 - mg/dL ?Cholesterol 213 H <200 - m g/dL ?LDL Cholesterol Calculated 146 H <100 - mg/dL ?HDL Cholesterol 47 >40 - mg/dL ???Lab:Microalbumin, Random (Order Date - 05/24/2024) (Collection Date - 05/24/2024) ? Value Reference Range ?Creatinine Urine 188.41 - m g/dL ?Microalbumin Urine 6.0 - mg/L ?Microalbum Creatinine Ratio Ur 3.1 <30 - ug/mg cr ???Lab:Hemoglobin A1c (Order Date - 05/24/2024) (Collection Date - 05/24/2024) ? Value Reference Range ?Hemoglobin A1c % 5.2 <6. 0 - % ?Estimated Average Glucose 103 - mg/dL ???Lab:UA ClnCatch+Micro w/r flx Cult (Order Date - 05/24/2024) (Collection Date - 05/24/2024) ? Value Reference Range ?Color Urine Yellow - ?Appearance Urine Clear - ?PH 5.5 5.0-9.0 - ?Glucose Urine UA Negative Neg ative - mg/dL ?Urine Blood Negative Negative - ?Specific [place] - Urine 1.025 1.005-1.025 - ?Urine Protein Negative Neg-Tr marlene - mg/dL ?Urine Ketones Negative Negati ve - mg/dL ?Nitrite Urine Negative Negati ve - ?Leukocyte Esterase Urine Negative Negative - ?RBC Urine 0-2 0-2 - /HPF ?WBC Urine 0-5 0-5 - /HPF ?Squamous Epithelial Cell Urine 0-2 0-2 - /HPF ?Bacteria Urine None Seen None Seen - ?Hyaline Casts Urine 0-2 0-2 - /LPF ???Lab:Complete Blood Count Auto Diff (Order Date - 05/24/2024) (Collection Date - 05/24/2024) ? Value Reference Range ?White Blood Count 8.2 4. 8-10.8 - X10*3/uL ?Red Blood Count 4.88 4.60 -5.80 - X10*6/uL ?Hemoglobin 15.0 14.0-18.0 - g/dl ?Hematocrit 43.1 42.0-52.0 - % ?Mean Corpuscular Volume 88.3 80.0-98.0 - fL ?Mean Corpuscular Hemoglobin 30.7 27.0-33.0 - pg ?Mean Corpuscular HGB Conc 34.8 31.0-36.0 - g/dl ?Red Cell Distribution Width 12.7 11.0-16.0 - % ?Platelet Count 160 160-4 00 - X10*3/uL ?Mean Platelet Volume 10.9 9.4-12.4 - fL ?Neutrophils Percent Auto 62.7 45-73 - % ?Imm Gran Pct Auto 0.2 0. 0-0.4 - % ?Lymphocytes Percent Auto 27.7 20-40 - % ?Monocytes Percent Auto 5.5 2-11 - % ?Eosinophils Percent Auto 3.3 0-4 - % ?Basophils Percent Auto 0.6 0-2 - % ?NRBC Pct Auto 0.0 0.0-0. 2 - /100WBC ?Neutrophils Absolute Auto 5.1 2.0-8.3 - x10*3/uL ?Imm Gran Abs Auto 0.02 0. 00-0.03 - X10*3/uL ?Lymphocytes Absolute Auto 2.3 1.2-4.9 - X10*3/uL ?Monocytes Absolute Auto 0.5 0.1-1.2 - X10*3/uL ?Eosinophils Absolute Auto 0.3 0.0-0.4 - X10*3/uL ?Basophils Absolute Auto 0.1 0.0-0.2 - X10*3/uL ?NRBC Abs Auto 0.000 0.0-0. 012 - X10*3/uL * Examination: ???General Examination: ?GENERAL APPEARANCE:?well developed, well nourished, in no acute distress.?HEAD:?normocephalic, atraumatic.?EYES:?pupils equal, round, reactive to light and accommodation, sclera non-icteric.?EARS:?normal.?ORAL CAVITY:?mucosa moist.?THROAT:?clear.?NECK/THYROID:?neck supple, full range of motion, no cervical lymphadenopathy, no bruits.?SKIN:?warm and dry, no suspicious lesions.?HEART:?regular rate and rhythm, S1, S2 normal, no murmurs.?LUNGS:?clear to auscultation bilaterally.?ABDOMEN:?soft, nontender, nondistended, bowel sounds present, normal, no organomegaly , no masses palpable.?RECTAL EXAM:?normal tone, no external hemorrhoids, no masses palpable, prostate normal, no stool and he won/\'t send back cards.?MALE GENITOURINARY:?circumcised , no penile lesions or discharge , testes descended bilaterally , no testicular mass , prostate normal.?EXTREMITIES:?no clubbing, cyanosis, or edema.?NEUROLOGIC:?nonfocal, motor strength normal upper and lower extremities, sensory exam intact.? Assessment: * Assessment: 1.?Prediabetes - R73.09 (Chiqui risa)?2.?Pure hypercholesterolemia - E78.00?3.?Rising PSA level - R97.20?4.?Colon cancer screening - Z12.11?5.?Depression screening - Z13.31? Plan: * Treatment: 2.?Pure hypercholesterolemia ?LAB: PSA,Total (Free>4and<10) (Ordered for 11/26/2024) Notes: needs to lose weight, will contonue to monitor?? 3.?Rising PSA level? Notes: will continue to monitor, pending future lab?? 4.?Colon cancer screening?LAB: Occult Blood, Stool, Guaiac?Negative ? Value Reference Range ?Occult Blood, Stool, Guaiac Neg Notes: guaiac negative??5.?Depression screening? Notes: negative screen?? * Immunizations:? Fluarix Quadrivalent - 150 (Not administered - Refused: Patient decision) * Procedure Codes:?79155 TEST FOR BLOOD, FECES * Preventive Medicine:? ??Counseling:?Care goal follow-up plan:?Counseling for abnormal BMI provided?Yes,?Above Normal BMI Follow-up?Giving encouragement to exercise.? ??Immunizations:?Influenza?Have you had a flu shot since the most recent March 25??No patient refused at visit today.? * Follow Up:?6 Months * * Sign off status: Completed true * Provider:?Benito Wick MD Date:?07/29/2023 Generated for Yonis neri/Cortez/eTransmitting on:?11/26/2024 01:29 PM EDT History and Physical Notes * HPI (History of Present Illness) Category Sub-Category Detail Notes Category Not es Symptom(s) patient is a 53 yo male here for annual visit with review of recent labs and follow up of chronic issues. Depression Screening PHQ-9 Little inte rest or pleasure in doing things: Not at all Feeling down, depressed, or hopeless: No t at all Trouble falling or staying asleep, or sl eeping too much: Not at all Feeling tired or having little energy: N ot at all Poor appetite or overeating: Not at all Feeling bad about yourself o r that you are a failure, or have let yourself or your family down: Not at all Trouble concentrating on thi ngs, such as reading the newspaper or watching television: Not at all Moving or speaking so slowly that other people could have noticed; or the opposite, being so fidgety or restless that you have been moving around a lot more than usual: Not at all Thoughts that you would be b wen off or of hurting yourself in some way: Not at all Total Score: 0 Interpretation and Intervention Depression Jeet sawant Findings: Negative Follow-Up for Depression: : review of PH Q-9 found negative result, no follow-up needed SDOH Questions SDOH Questions In the past year have you been worried about losing housing?: No In the past year have you or any family members you live with been unable to get any of the following when it was really needed? Check all that apply:: None Communication Needs Communication Needs Does the patient have a hearing impairment: No Does the patient have a vision impairmen t?: No Does the patient have a cognition impair ment?: No Examination Category Sub-Category Detail Notes Category Not es General Examination GENERAL APPEARANCE: well dev eloped, well nourished, in no acute distress HEAD: normocephalic, atrau matic EYES: pupils equal, round, reactive to light and accommodation, sclera non-icteric EARS: normal THROAT: clear NECK/THYROID: neck supple, full ra nge of motion, no cervical lymphadenopathy, no bruits HEART: regular rate and rhy thm, S1, S2 normal, no murmurs LUNGS: clear to auscultatio n bilaterally ABDOMEN: soft, nontender, non distended, bowel sounds present, normal, no organomegaly , no masses palpable NEUROLOGIC: nonfocal, motor stre ngth normal upper and lower extremities, sensory exam intact SKIN: warm and dry, no laura picious lesions EXTREMITIES: no clubbing, cyanosi s, or edema MALE GENITOURINARY: circumcised , no pen ile lesions or discharge , testes descended bilaterally , no testicular mass , prostate normal RECTAL EXAM: normal tone, no exte rnal hemorrhoids, no masses palpable, prostate normal, no stool and he won/\'t send back cards ORAL CAVITY: mucosa moist
--- OUTSIDE RECORDS SUMMARY | 2024-11-26 13:30 | XMS_ITS ---
Author Organization Benito Wick MD Address [address] [place] [phone] Care Team Providers Care Collar Pointer Name Role Phone Benito Wick Primary Care Provider Results Component Value Reference Range Notes PSA,Total (Free>4and<10) (No t yet reviewed by provider) Interpretation: Performing Lab:[facility], [address] [place] [phone] Notes/Report: PSA,Total (Free>4and<10) 3.19 0.00-4.00 ng/mL A [...] Castro Alinity i Chemiluminescent Microparticle Immunoassay (CMIA) REASON FOR VISIT PSA Encounters Encounter Location Date Provider Diagnosis Benito Wick MD [address] [place] [address] [place] [phone] 11/26/2024 Benito Wick Pure hypercholestero lemia E78.00 Assessments Encounter Date Diagnosis (ICD Code) Assessment Notes Treatment Notes Treatment Clinical Notes Section Notes 11/26/2024 Pure hypercholesterolemia (ICD-10 - E78.00) Plan Of Treatment Pending Test Test Name Order Date PSA,Total (Free>4and<10) 11/26/2024 Next Appt Details Provider Name:Benito Goff ier, 12/03/2024 08:30:00 AM, [address], [address], [place], [phone], Provider Name:Benito Goff ier, 05/27/2025 08:00:00 AM, [address], [address], [place], [phone], Provider Name:Benito Goff ier, 06/03/2025 02:30:00 PM, [address], [address], [place], [phone], Progress Notes * Gustavo RESENDIZDOB:[birth year] (54 yo M)Acc No.[id number]:11/26/2024 Progress Note Patient:?Gustavo RESENDIZ Provider:?Benito Wick MD :1970???Age:54 Y???Sex:Male Chris e:11/26/2024 Address:[address] [place], [place] [phone] Subjective: * Chief Complaints: * ???1. PSA. * Medical History:? Objective: * Vitals:? Assessment: * Assessment: 1.?Pure hypercholesterolemia - E78.00??? Plan: * Treatment: * Procedure Codes:?45417 VENIP UNCT, ROUTINE* * * The named appointment provid er may or may not be the originator of this progress note, and it is not deemed complete until electronically signed by the appointment provider. Sign off status: Pending * Provider:?Benito Wick MD Date:?0 11/26/2024 Generated for Yonis neri/Cortez/Grettaitting on:?11/26/2024 01:29 PM EDT
--- OUTSIDE RECORDS SUMMARY | 2024-11-26 13:30 | XMS_ITS | Patient Health Record ---
Author Organization [facility] Address [address] [place] [phone] Care Team Providers Care Director Of Valuation Name Role Phone Benito Wick MD Primary Care Provider James Cuevas [phone] Reason For Referral No Information Immunizations Vaccine Route Administration Date Status Comme nts Influenza Unknown 12/15/2021 Refused Social History Tobacco Use: Social History Observation Description Date Details (start date - stop date) Never Smoker NA - NA Tobacco Use/Smoking Question Answer Notes Patient is a nonsmoker Alcohol Screen Question Answer Notes Did you have a drink contain ing alcohol in the past year? Yes How often did you have a dri nk containing alcohol in the past year? 4 or more times a week (4 points) How many drinks did you have on a typical day when you were drinking in the past year? 3 or 4 drinks (1 point) How often did you have 6 or more drinks on one occasion in the past year? Never (0 point) Points 5 Interpretation Positive Section Notes: Nonsmoker; a couple of drink s a few times a week Problems Problem Type SNOMED Code ICD Code Onset Dates Problem Status W/U Status Risk Notes Problem Encounter for screening for malignant neoplasm of colon (Z12.11) Active confirmed Problem Pre-procedure evaluation check (543746525) Encounter for other preprocedural examination (Z01.818) Active confirmed Problem Diverticulosis of colon (292949792) Diverticulosis of colon (K57.30) Active confirmed Plan Of Treatment Future Test Test Name Order Date COLONOSCOPY 12/15/2021 Insurance Providers Payer Name Payer Address Payer Phone Subscriber Number Group Number Insured Name Patient Relationship to Insured Coverage Start Date Coverage End Date [facility] [address] [place] [address] [phone] [id number] CORWIN RESENDIZ Self - patient is the insured Medical (General) History Medical History History ICD Code Denies [place],DM,CVA,Lung disease,renal dise ase Surgical History Surgery Date(Month/Year) Appendectomy
--- OUTSIDE RECORDS SUMMARY | 2024-11-26 13:31 | XMS_ITS ---
Author Organization Benito Wick MD Address [address] [place], [place] [id number] Care Team Providers Care Tar Chaser Name Role Phone Benito Wick Primary Care Provider [phone] Results Component Value Reference Range Notes Complete Blood Count Auto Di ff Reviewed date:05/24/2024 12:38:33 PM Interpretation: Performing Lab:, [address] [place] [phone] Notes/Report: White Blood Count 8.2 4.8-10.8 X10*3/uL [...] NRBC Abs Auto 0.000 0.0-0.012 X10*3/uL Comprehensive [place]. Panel Fa st Reviewed date:05/24/2024 12:39:02 PM Interpretation: Performing Lab:, [address] [place] [phone] Notes/Report: Sodium 141 135-145 mmol/L Potassium 3.9 3.3-5.1 mmol/L Chloride 108 96-108 mmol/L Carbon Dioxide 23 22-29 mmol/L Anion Gap 14 12-20 Blood Urea Nitrogen 18 9-16 mg/dL Creatinine 1.01 0.5-1.4 mg/dL Estimated Glomerular Filt Rate > 60 NOTE: For -[place] individuals, multiply the result by 1.210. Chronic [...] Panel Reviewed date:05/24/2024 12:31:05 PM Interpretation: Performing Lab:, [address] [place] [phone] Notes/Report: Triglycerides 102 <150 mg/dL Desirable Triglyceride: [...] disease. PSA,Total (Free>4and<10) Reviewed date:05/31/2024 08:42:51 AM Interpretation:MAURICE 05/29 Performing Lab:[address] [phone] Notes/Report: PSA,Total (Free>4and<10) 3.11 0.00-4.00 ng/mL A [...] Random Reviewed date:05/24/2024 12:38:43 PM Interpretation: Performing Lab:[address] [phone] Notes/Report: Creatinine Urine 188.41 Microalbumin Urine 6.0 Microalbum/Creatinine Ratio Ur 3.1 <30 ug/mg cr Albumin/Creatinine Ratio Reference Ranges: Normal: < 30 ug/mg creatinine Microalbuminuria: 30 - 300 ug/mg creatinine Clinical Albuminuria: > 300 ug/mg creatinine Hemoglobin A1c Reviewed date:05/24/2024 12:30:56 PM Interpretation: Performing Lab:[facility] [address], [place] [address] Notes/Report: Hemoglobin A1c % 5.2 <6.0 % [...] average glucose, using the formula of the U1G-Zixnfuy Average Glucose study (ADAG), Diabetes Care, Vol.31,#8, Feb. 2007 UA ClnCatch+Micro w/rflx Cul t Reviewed date:05/24/2024 12:31:32 PM Interpretation: Performing Lab:, [address] [place] [phone] Notes/Report: Urine, Clean Catch Color Urine Yellow Appearance Urine Clear PH 5.5 5.0-9.0 Glucose Urine UA Negative Negative mg/dL Urine Blood Negative Negative Specific [place] - Urine 1.025 1.005-1.025 Urine Protein Negative Neg-Trace mg/dL Urine Ketones Negative Negative mg/dL Nitrite Urine Negative Negative Leukocyte Esterase Urine Negative Negative RBC Urine 0-2 0-2 /HPF WBC Urine 0-5 0-5 /HPF Squamous Epithelial Cell Urine 0-2 0-2 /HPF Bacteria Urine None Seen None Seen Hyaline Casts Urine 0-2 0-2 /LPF REASON FOR VISIT FASTING LABS Encounters Encounter Location Date Provider Diagnosis Benito Wick MD [address] [place], [place] [id number] 05/24/2024 Benito Wick Blood tests for rout ine general physical examination Z00.00 ; Prediabetes R73.09 and Pure hypercholesterolemia E78.00 Assessments Encounter Date Diagnosis (ICD Code) Assessment Notes Treatment Notes Treatment Clinical Notes Section Notes 05/24/2024 Blood tests for rout ine general physical examination (ICD-10 - Z00.00) 05/24/2024 Prediabetes (ICD-10 - R73.09) 05/24/2024 Pure hypercholesterolemia (ICD-10 - E78.00) Plan Of Treatment Next Appt Details Provider Name:Benito nye, 12/03/2024 08:30:00 AM, [address], [address], [place], [place], [id number], Provider Name:Benito Goff ier, 05/27/2025 08:00:00 AM, [address] [facility], [address], [place], [place], [phone], Provider Name:Beinto Goff ier, 06/03/2025 02:30:00 PM, [address] [facility], [address], [place], [place], [phone], Progress Notes * Gustavo RESENDIZDOB:[birth year] (54 yo M)Acc No.[id number]:05/24/2024 Progress Note Patient:?Gustavo RESENDIZ Provider:?Benito Wick MD :[id number]???Age:53 Y???Sex:Male Chris e:05/24/2024 Address:[address] [place], [place] [phone] Subjective: * Chief Complaints: * ???1. FASTING LABS. * Medical History:? Objective: * Vitals:? Assessment: * Assessment: 1.?Blood tests for routine g eneral physical examination - Z00.00 (Primary)???2.?Prediabetes - R73.09???3.?Pure hypercholesterolemia - E78.00??? Plan: * Treatment: ?LAB: Microalbumin, Random (Collection Date & Time - 05/24/2024 07:45 AM) ?LAB: Hemoglobin A1c (Collection Date & Time - 05/24/2024 07:45 AM) ?LAB: UA ClnCatch+Micro w/rflx Cult (Collection Date & Time - 05/24/2024 07:45 AM)2.?Prediabetes?LAB: Complete Blood Count Auto Diff (Collection Date & Time - 05/24/2024 07:45 AM) ?LAB: Comprehensive [place]. Panel Fast (Collection Date & Time - 05/24/2024 07:45 AM) ?LAB: Lipid Panel (Collection Date & Time - 05/24/2024 07:45 AM) ?LAB: PSA,Total (Free>4and<10) (Collection Date & Time - 05/24/2024 07:45 AM)* Irish Wade 024 08:42:41 AM EST > PATIENT KEPT HIS APPT ?LAB: Microalbumin, Random (Collection Date & Time - 05/24/2024 07:45 AM) ?LAB: Hemoglobin A1c (Collection Date & Time - 05/24/2024 07:45 AM) ?LAB: UA ClnCatch+Micro w/rflx Cult (Collection Date & Time - 05/24/2024 07:45 AM)3.?Pure hypercholesterolemia?LAB: Complete Blood Count Auto Diff (Collection Date & Time - 05/24/2024 07:45 AM) ?LAB: Comprehensive [place]. Panel Fast (Collection Date & Time - 05/24/2024 07:45 AM) ?LAB: Lipid Panel (Collection Date & Time - 05/24/2024 07:45 AM) ?LAB: PSA,Total (Free>4and<10) (Collection Date & Time - 05/24/2024 07:45 AM)* Dimple Wadeti Silvio 024 08:42:41 AM EST > PATIENT KEPT HIS APPT ?LAB: Microalbumin, Random (Collection Date & Time - 05/24/2024 07:45 AM) ?LAB: Hemoglobin A1c (Collection Date & Time - 05/24/2024 07:45 AM) ?LAB: UA ClnCatch+Micro w/rflx Cult (Collection Date & Time - 05/24/2024 07:45 AM) * Procedure Codes:?86508 VENIP UNCT, ROUTINE* * * The named appointment provid er may or may not be the originator of this progress note, and it is not deemed complete until electronically signed by the appointment provider. Sign off status: Pending * Provider:?Benito Wick MD Date:?1 Generated for Ynois neri/Cortez/eTransmitting on:?11/26/2024 01:30 PM EDT
== END 2024-11-26 11:42 | disposition home or self-care (01) ==
LOC: HO.LNP 11:41
PROVIDERS: Visit Provider Internal Medicine
DX: E78.00 Pure hypercholesterolemia, unspecified (principal); Z12.5 Encounter for screening for malignant neoplasm of prostate
CPT/HCPCS: 84153

== ENCOUNTER 2025-05-28 10:59 | Outpatient (REF) | payer OTHER, SELFPAY ==
[2025-05-28 11:03] LABS: MANUAL DIFF FLAG NO
[2025-05-28 11:12] LABS: Hematocrit 45.4 % (42.0-52.0); Hemoglobin 15.9 g/dl (14.0-18.0); Imm Gran Abs Auto 0.03 X10*3/uL (0.00-0.03); Imm Gran Pct Auto 0.3 % (0.0-0.4); Lymphocytes Absolute Auto 2.9 X10*3/uL (1.2-4.9); Mean Corpuscular HGB Conc 35.0 g/dl (31.0-36.0); Mean Corpuscular Hemoglobin 30.6 pg (27.0-33.0); Mean Corpuscular Volume 87.3 fL (80.0-98.0); NRBC Abs Auto 0.000 X10*3/uL (0.0-0.012); NRBC Pct Auto 0.0 /100WBC (0.0-0.2); Platelet Count 182 X10*3/uL (160-400); Red Blood Count 5.20 X10*6/uL (4.60-5.80); White Blood Count 10.0 X10*3/uL (4.8-10.8)
[2025-05-28 11:13] LABS: Appearance Urine Clear; Glucose Urine UA Negative (Negative); PH 5.5 (5.0-9.0); Specific Gravity - Urine 1.020 (1.005-1.025)
[2025-05-28 11:33] LABS: Alanine Aminotransferase 33 U/L (0-40); Albumin Level 4.5 g/dL (3.5-5.0); Alkaline Phosphatase 59 U/L (39-117); Anion Gap 11 (12-20); Aspartate Amino Transferase 29 U/L (5-37); Blood Urea Nitrogen 16 mg/dL (9-16); Calcium 8.6 mg/dL (8.4-10.2); Carbon Dioxide 25 mmol/L (22-29); Chloride 106 mmol/L (96-108); Cholesterol 228 mg/dL (<200); Estimated Glomerular Filt Rate > 60; HDL Cholesterol 56 mg/dL (>40); Potassium 4.1 mmol/L (3.3-5.1); Sodium 138 mmol/L (135-145); Total Protein 7.2 g/dL (6.5-8.0); Triglycerides 94 mg/dL (<150)
[2025-05-28 11:35] LABS: Microalbum/Creatinine Ratio Ur 7.1 ug/mg cr (<30)
[2025-05-28 11:44] LABS: PSA,Total (Free>4and<10) 3.87 ng/mL (0.00-4.00)
== END 2025-05-28 11:00 | disposition home or self-care (01) ==
LOC: HO.LNP 10:59
PROVIDERS: Visit Provider Internal Medicine
DX: Z00.00 Encounter for general adult medical examination without abnormal findings (principal); Z12.5 Encounter for screening for malignant neoplasm of prostate; R73.03 Prediabetes; E78.00 Pure hypercholesterolemia, unspecified
CPT/HCPCS: 80053; 80061; 81001; 82043; 82570; 83036; 84153; 85025